=== PATIENT | female | born 1960 | race Hispanic/Latino ===

== ENCOUNTER 2018-06-03 16:20 | Inpatient (IN) | payer BC, OTHER ==
[2018-06-03] MEDS ORDERED: NA CHLORIDE 0.9% 0 ML ONE (18:02)
[2018-06-03] MEDS ORDERED: ACETAMINOPHEN 500 MG TAB ONE (18:02)
[2018-06-03 18:09] LABS: Absolute Lymphocytes (CBC) 1.4 K/uL (0.7-4.9); Absolute Monocytes 0.7 K/uL (0.1-1.3); Absolute Neutrophil 8.1 K/uL (1.8-8.0); Basophils % 0.7 % (0-1.3); Eosinophils % 2.4 % (0-4.4); Lymphocytes % 13.1 % (15.3-44.8); MCV 84.5 fL (80-100); MPV 7.1 fL (7.6-11.3); Monocytes % 6.4 % (3.3-12.3); Protime INR 1.13
[2018-06-03 18:33] LABS: ALT/SGPT 30 U/L (12-78); AST/SGOT 31 U/L (15-37); Albumin 3.3 g/dL (3.4-5.0); Alkaline Phosphatase 140 U/L (45-117); BUN Blood Urea Nitrogen 16 mg/dL (7-18); Bicarbonate 25 mmol/L (21-32); Bilirubin Direct < 0.1 mg/dL (0-0.2); Bilirubin Total 0.3 mg/dL (0.2-1.0); Glucose Level 107 mg/dL (74-106); NT PRO-BNP 20 pg/mL (<125); Potassium 3.8 mmol/L (3.5-5.1); Protein, Total 9.3 g/dL (6.4-8.2); Sodium Level 135 mmol/L (136-145); Troponin (Emerg Dept Use Only) 0.03 ng/mL (0.0-0.045)
[2018-06-03] MEDS ORDERED: AZITHROMYCIN 500 MG/250 ML BAG ONE (18:44)
[2018-06-03] MEDS ORDERED: CEFTRIAXONE/SWI 1gm 1 GM/10 ML SYR ONE ×2 (18:44→19:24)
[2018-06-03 18:56] LABS: Urine Blood NEGATIVE (NEG); Urine Glucose NEGATIVE (NEG); Urine Protein NEGATIVE (NEG); Urine pH 6.5 (5.0-7.0)
[2018-06-03] MEDS ORDERED: NA CHLORIDE 0.9% 1,000 ML ONE (19:23)
[2018-06-03] MEDS ORDERED: ALBUTEROL 2.5 MG/3 ML NEB SOL ONE (19:38)
[2018-06-03 19:47] LABS: Urine Bacteria <20 /HPF (<20); Urine RBC <5 /HPF (NONE SEEN)
[2018-06-03 19:48] LABS: Urine Culture Reflex Order NOT NEEDED
--- NOTE | 2018-06-03 20:01 | EDPHYS ---
Physician Documentation [facility] Name: Waleska Zhong Age: 57 yrs Sex: Female : 1960 Arrival Date: 06/03/2018 Time: 16:23 Bed 7 Private MD: ED Physician Teodoro Hamilton HPI: 06/02 17:30 This 57 yrs old Female presents to ER via Ambulatory with complaints of pm1 Shortness Of Breath, Cough. 17:30 The patient has shortness of breath with light activity. Onset: The symptoms/episode pm1 began/occurred 3 week(s) ago. Duration: The symptoms are continuous, and are steadily getting worse. The patient's shortness of breath is aggravated by exertion, light activity, is alleviated by nothing. Associated signs and symptoms: Pertinent positives: non-productive cough, fever, Pertinent negatives: chest pain, nausea, vomiting. Severity of symptoms: in the emergency department the symptoms are worse. The patient has been recently seen by a physician: the patient's primary care provider, with similar presenting complaints, lab tests were done, X-rays were performed, CT scan was done, was given a prescription for antibiotics. Patient presenting today with fever and shortness of breath for 3 weeks. Patient with right ear pain, sore throat and fever and was given a prescription for Levaquin by her PCP. Lab work and chest x-ray performed. Told that initial chest X-ray showed right lower base possible infiltrate. Patient without improvement in fever or shortness of breath and was prescribed doxycycline after completing Levaquin. No improvement with doxycycline either. . Historical: - Allergies: 06/03 17:01 Sulfa (Sulfonamide Antibiotics); aj1 17:01 Pyridium; aj1 - PMHx: 17:01 Hypertension; Hyperlipidemia; Hypothyroidism; aj1 - Immunization history:: Adult Immunizations up to date. - Social history:: Smoking status: Patient/guardian denies using tobacco. - Ebola Screening: : No symptoms or risks identified at this time. ROS: 17:30 Eyes: Negative for injury, pain, redness, and discharge. pm1 17:30 Neck: Negative for injury, pain, and swelling. 17:30 Constitutional: Positive for fever, Negative for poor PO intake. 17:30 Abdomen/GI: Negative for abdominal pain, nausea, vomiting, diarrhea, and constipation, pm1 Back: Negative for injury and pain, : Negative for injury, bleeding, discharge, and swelling, MS/Extremity: Negative for injury and deformity, Skin: Negative for injury, rash, and discoloration, Neuro: Negative for headache, weakness, numbness, tingling, and seizure. 17:30 Cardiovascular: Negative for chest pain, palpitations, and edema. 17:30 Respiratory: Positive for dyspnea on exertion, shortness of breath, Negative for sputum production, wheezing. Exam: 17:30 Head/Face: Normocephalic, atraumatic. Eyes: Pupils equal round and reactive to light, pm1 extra-ocular motions intact. Lids and lashes normal. Conjunctiva and sclera are non-icteric and not injected. Cornea within normal limits. Periorbital areas with no swelling, redness, or edema. ENT: Nares patent. No nasal discharge, no septal abnormalities noted. Tympanic membranes are normal and external auditory canals are clear. Oropharynx with no redness, swelling, or masses, exudates, or evidence of obstruction, uvula midline. Mucous membranes moist. Neck: Trachea midline, no thyromegaly or masses palpated, and no cervical lymphadenopathy. Supple, full range of motion without nuchal rigidity, or vertebral point tenderness. No Meningismus. Chest/axilla: Normal chest wall appearance and motion. Nontender with no deformity. No lesions are appreciated. Cardiovascular: Regular rate and rhythm with a normal S1 and S2. No gallops, murmurs, or rubs. Normal PMI, no JVD. No pulse deficits. 17:30 Abdomen/GI: Soft, non-tender, with normal bowel sounds. No distension or tympany. No guarding or rebound. No evidence of tenderness throughout. Back: No spinal tenderness. No costovertebral tenderness. Full range of motion. Skin: Warm, dry with normal turgor. Normal color with no rashes, no lesions, and no evidence of cellulitis. MS/ Extremity: Pulses equal, no cyanosis. Neurovascular intact. Full, normal range of motion. 17:30 Constitutional: The patient appears in no acute distress, alert, awake, comfortable, non-diaphoretic, non-toxic, well developed, well hydrated, well groomed, well nourished, febrile. 17:30 Respiratory: the patient does not display signs of respiratory distress, Respirations: normal, Breath sounds: decreased breath sounds, are located in both bases. 17:30 Neuro: Orientation: is normal, Motor: is normal, moves all fours. Vital Signs: 17:01 BP 140 / 86; Pulse 114; Resp 24; Temp 101.3; Pulse Ox 93% on R/A; Weight 66.22 kg (R); aj1 Height 5 ft. 2 in. (157.48 cm) (R); 20:24 BP 107 / 76; Pulse 89; Resp 20; Pulse Ox 97% on 2 lpm NC; Pain 0/10; tl1 20:37 Temp 98.7(O); mw2 20:37 BP 115 / 78; Pulse 96; Resp 17; Pulse Ox 95% on R/A; Pain 0/10; mw2 17:01 Body Mass Index 26.70 (66.22 kg, 157.48 cm) aj1 MDM: 17:07 Patient medically screened. pm1 19:59 Data reviewed: vital signs. Data interpreted: Pulse oximetry: on 2L(s) per nasal pm1 canula, is 97 %. Interpretation: normal. Counseling: I had a detailed discussion with the patient and/or guardian regarding: the historical points, exam findings, and any diagnostic results supporting the discharge/admit diagnosis, lab results, radiology results, the need for further work-up and treatment in the hospital. 20:10 Physician consultation: Mo Acosta MD was contacted at 20:10, regarding admission, pm1 patient's condition, would like further tests performed, procalcitonin, in the emergency department to see patient at 20:10. 06/03 17:26 Order name: Basic Metabolic Panel; Complete Time: 19:10 pm1 06/03 17:26 Order name: CBC with Diff; Complete Time: 18:24 pm1 06/03 17:26 Order name: LFT's; Complete Time: 19:10 pm1 06/03 17:26 Order name: Magnesium; Complete Time: 19:10 pm1 06/03 17:26 Order name: NT PRO-BNP; Complete Time: 19:10 pm1 06/03 17:26 Order name: PT-INR; Complete Time: 18:24 pm1 06/03 17:26 Order name: Troponin (emerg Dept Use Only); Complete Time: 19:10 pm1 06/03 17:26 Order name: Blood Culture Adult (2) pm1 06/03 17:26 Order name: Flu; Complete Time: 19:10 pm1 06/03 17:26 Order name: Weld Screen Profile; Complete Time: 19:10 pm1 06/03 17:26 Order name: Urine Microscopic Only; Complete Time: 19:56 pm1 06/03 17:43 Order name: TSH; Complete Time: 19:43 pm1 06/03 18:33 Order name: Urine Dipstick--Ancillary (enter results); Complete Time: 19:10 bd 06/03 20:09 Order name: Procalcitonin pm1 06/03 17:26 Order name: XRAY Chest (1 view) pm1 06/03 17:26 Order name: EKG; Complete Time: 17:37 pm1 06/03 17:26 Order name: Cardiac monitoring; Complete Time: 18:26 pm1 06/03 17:26 Order name: EKG - Nurse/Tech; Complete Time: 18:26 pm1 06/03 17:26 Order name: IV Saline Lock; Complete Time: 18:26 pm1 06/03 17:26 Order name: Labs collected and sent; Complete Time: 18:26 pm1 06/03 17:26 Order name: O2 Per Protocol; Complete Time: 18:26 pm1 06/03 17:26 Order name: O2 Sat Monitoring; Complete Time: 18:26 pm1 06/03 19:12 Order name: CT Chest For PE Angio pm1 06/03 21:21 Order name: Procalcitonin; Complete Time: 21:22 EDMS 06/03 17:26 Order name: Urine Dipstick-Ancillary (obtain specimen); Complete Time: 20:58 pm1 Administered Medications: 18:00 Drug: Tylenol 1000 mg Route: PO; sg 20:59 Follow up: Response: Temperature is decreased lp1 18:10 Drug: NS 0.9% 1000 ml Route: IV; Rate: 1000 ml; Site: left antecubital; sg 20:30 Follow up: IV Status: Completed infusion; IV Intake: 1000ml lp1 18:45 Drug: Zithromax 500 mg Route: IVPB; Infused Over: 1 hrs; Site: left antecubital; sg 20:59 Follow up: IV Status: Completed infusion lp1 19:17 Drug: Rocephin 1 grams Route: IV; Rate: calculated rate; Site: left antecubital; sg 20:00 Follow up: IV Status: Completed infusion; IV Intake: 10ml lp1 19:32 Drug: Albuterol 2.5 mg Route: Inhalation; tl1 20:06 Drug: Rocephin 1 grams Route: IV; Rate: calculated rate; Infused Over: 5 mins; Site: tl1 left antecubital; 20:30 Follow up: IV Status: Completed infusion; IV Intake: 10ml lp1 Disposition: 06/03/18 20:01 Hospitalization ordered by Mo Acosta for Inpatient Admission. Preliminary diagnosis is Pneumonia, unspecified organism - bilateral . - Bed requested for Telemetry/MedSurg (Inpatient). - Status is Inpatient Admission. lp1 - Condition is Stable. - Problem is new. - Symptoms have improved. UTI on Admission? No Addendum: 06/07/2018 19:03 Co-signature as Attending Physician, Teodoro Hamilton MD. r n Signatures: Dispatcher [employer] EDNC Kalyani Pringle RN RN [facility] Roseanne Segura RN LELE Bruce Castillo RN RN Teodoro Hamilton MD MD rn Pena, Laura RN RN 1 Sadia Robison RN RN 1 Bob Bearden, STUDY ABROAD ADVISOR STUDY ABROAD ADVISOR pm1 Corrections: (The following items were deleted from the chart) 06/03 18:53 06/02 17:30 The patient has shortness of breath with light activity, pm1 pm1 06/03 20:06 20:01 Hospitalization Ordered by Mo Acosta MD for Inpatient Admission. Preliminary diagnosis is Pneumonia, unspecified organism - bilateral . Bed requested for Telemetry/MedSurg (Inpatient). Status is Inpatient Admission. Condition is Stable. Problem is new. Symptoms have improved. UTI on Admission? No. pm1 21:39 20:06 06/03/2018 20:01 Hospitalization Ordered by Mo Acosta MD for Inpatient lp1 Admission. Preliminary diagnosis is Pneumonia, unspecified organism - bilateral . Bed requested for Telemetry/MedSurg (Inpatient). Status is Inpatient Admission. Condition is Stable. Problem is new. Symptoms have improved. UTI on Admission? No. mw
--- NOTE | 2018-06-03 20:01 | ER ---
Nurse's Notes [facility] Name: Waleska Zhong Age: 57 yrs Sex: Female : 1960 Arrival Date: 06/03/2018 Time: 16:23 Bed 7 Private MD: Diagnosis: Pneumonia, unspecified organism-bilateral Presentation: 06/03 16:58 Presenting complaint: states: She's been short of breath, running fever for 3 aj1 weeks. She's taken 2 sets of antibiotics and it isn't helping. She's had blood work done twice but it all came back clear. They saw a sintering press operator and she ordered a CT scan but they haven't had it done yet. Transition of care: patient was not received from another setting of care. Onset of symptoms was May 2018. Risk Assessment: Do you want to hurt yourself or someone else? Patient reports no desire to harm self or others. Initial Sepsis Screen: Does the patient meet any 2 criteria? RR > 20 per min. HR > 90 bpm. No. Patient's initial sepsis screen is negative. Does the patient have a suspected source of infection? Yes: Other: SOB. Care prior to arrival: None. 16:58 Method Of Arrival: Ambulatory aj1 16:58 Acuity: SERGEY 3 aj1 Triage Assessment: 17:01 General: Appears in no apparent distress. uncomfortable, Behavior is calm, cooperative, aj1 appropriate for age. Pain:. Neuro: Level of Consciousness is awake, alert, obeys commands. Cardiovascular: Patient's skin is warm and dry. Respiratory: Reports shortness of breath Onset: The symptoms/episode began/occurred 3 weeks ago, the patient has mild shortness of breath. Historical: - Allergies: 17:01 Sulfa (Sulfonamide Antibiotics); aj1 17:01 Pyridium; aj1 - PMHx: 17:01 Hypertension; Hyperlipidemia; Hypothyroidism; aj1 - Immunization history:: Adult Immunizations up to date. - Social history:: Smoking status: Patient/guardian denies using tobacco. - Ebola Screening: : No symptoms or risks identified at this time. Screenin:45 Abuse screen: Denies threats or abuse. Denies injuries from another. Nutritional sg screening: No deficits noted. Tuberculosis screening: No symptoms or risk factors identified. Never had TB. Fall Risk None identified. Assessment: 17:30 General: Appears in no apparent distress. uncomfortable, ill, well groomed, well sg developed, well nourished, Behavior is calm, cooperative, appropriate for age. Pain: Denies pain. Neuro: Level of Consciousness is awake, alert, obeys commands, Oriented to person, place, time, situation, Dental Tech are equal bilaterally Moves all extremities. Full function Gait is steady, Speech is normal, Facial symmetry appears normal, Pupils are PERRLA. Cardiovascular: Heart tones S1 S2 present Capillary refill is brisk in bilateral fingers Patient's skin is warm and dry. Chest pain is denied. Respiratory: Airway is patent Respiratory effort is even, unlabored, Respiratory pattern is regular, symmetrical, Breath sounds are clear. GI: Abdomen is round Bowel sounds present X 4 quads. : No signs and/or symptoms were reported regarding the genitourinary system. EENT: No signs and/or symptoms were reported regarding the EENT system. Derm: Skin is pink, warm \T\ dry. Musculoskeletal: No signs and/or symptoms reported regarding the musculoskeletal system. Vital Signs: 17:01 BP 140 / 86; Pulse 114; Resp 24; Temp 101.3; Pulse Ox 93% on R/A; Weight 66.22 kg (R); aj1 Height 5 ft. 2 in. (157.48 cm) (R); 20:24 BP 107 / 76; Pulse 89; Resp 20; Pulse Ox 97% on 2 lpm NC; Pain 0/10; tl1 20:37 Temp 98.7(O); mw2 20:37 BP 115 / 78; Pulse 96; Resp 17; Pulse Ox 95% on R/A; Pain 0/10; mw2 17:01 Body Mass Index 26.70 (66.22 kg, 157.48 cm) aj1 ED Course: 16:23 Patient arrived in ED. mr 17:01 Triage completed. aj1 17:01 Arm band placed on Patient placed in an exam room. aj1 17:07 Bob Bearden NP is PHCP. pm1 17:07 Teodoro Hamilton MD is Attending Physician. pm1 17:45 Initial lab(s) drawn, by me, sent to lab. First set of blood cultures drawn by me, Flu sg and/or RSV swab sent to lab. Inserted saline lock: 22 gauge in left antecubital area, using aseptic technique. Blood collected. 17:56 EKG done, by dental tech. reviewed by Bob Bearden NP. 3 18:00 Second set of blood cultures drawn by me. sg 18:25 Bruce Castillo, RN is Primary Nurse. sg 18:46 XRAY Chest (1 view) In Process Unspecified. EDMS 19:45 CT completed. Patient tolerated procedure well. Patient moved to CT. Patient moved back me from CT. 19:47 CT Chest For PE Angio In Process Unspecified. EDMS 20:00 Mo Acosta MD is Hospitalizing Provider. pm1 20:53 Patient has correct armband on for positive identification. Bed in low position. Call lp1 light in reach. Pulse ox on. NIBP on. 20:53 No provider procedures requiring assistance completed. Patient admitted, IV remains in lp1 place. Administered Medications: 18:00 Drug: Tylenol 1000 mg Route: PO; sg 20:59 Follow up: Response: Temperature is decreased lp1 18:10 Drug: NS 0.9% 1000 ml Route: IV; Rate: 1000 ml; Site: left antecubital; sg 20:30 Follow up: IV Status: Completed infusion; IV Intake: 1000ml lp1 18:45 Drug: Zithromax 500 mg Route: IVPB; Infused Over: 1 hrs; Site: left antecubital; sg 20:59 Follow up: IV Status: Completed infusion lp1 19:17 Drug: Rocephin 1 grams Route: IV; Rate: calculated rate; Site: left antecubital; sg 20:00 Follow up: IV Status: Completed infusion; IV Intake: 10ml lp1 19:32 Drug: Albuterol 2.5 mg Route: Inhalation; tl1 20:06 Drug: Rocephin 1 grams Route: IV; Rate: calculated rate; Infused Over: 5 mins; Site: tl1 left antecubital; 20:30 Follow up: IV Status: Completed infusion; IV Intake: 10ml lp1 Intake: 20:00 IV: 10ml; Total: 10ml. lp1 20:30 IV: 1000ml; Total: 1010ml. lp1 20:30 IV: 10ml; Total: 1020ml. lp1 Outcome: 20:01 Decision to Hospitalize by Provider. pm1 20:54 Condition: stable lp1 20:54 Instructed on the need for admit. 21:09 Admitted to Tele room 424, with chart, Report called to Monae Piedra RN lp1 21:39 Patient left the ED. lp1 Signatures: Dispatcher [employer] EDMS Kalyani Pringle, RN RN aj1 Bruce Castillo RN RN sung Arias, Jhoana mr Chay, LELE Kaur RN lp1 Sadia Robison RN RN tl1 Bob Bearden, MEDICAL REFERRAL COORDINATOR MEDICAL REFERRAL COORDINATOR pm1 Barry Oakley MyKena 2 Sarah Worthington 3
--- NOTE | 2018-06-03 20:57 | P.HP ---
Certification for Inpatient Patient admitted to: Inpatient With expected LOS: >2 Midnights Practitioner: I am a practitioner with admitting privileges, knowledge of patient current condition, hospital course, and medical plan of care. Services: Services provided to patient in accordance with Admission requirements found in Title 42 Section 412.3 of the Code of Federal Regulations Patient History Date of Service: 06/03/18 Reason for admission: pneumonia History of Present Illness: Ms Zhong is a 57 years old woman with history of HTN, Hypothyroidism, dyslipidemia, who start about 3 weeks ago with cough and progressive SOB associated with fever. She was prescribed by her doctor 2 different courses of antibiotics, first Levaquin and then Doxycyclin, without improvement. Over the last few days her SOB got worse, she was not able to walk short distances, still spiking fever. She decided to come to ED for further evaluation. Lab work remarkable for normal WBC count, lactate and procalcitonin are pending, TSH was low. CT chest preliminary report shows bilateral pneumonia. O2 sat 93 % on RA, BP 140/86, HR 114 and temp 101.3F. Home medications list reviewed: Yes - Past Medical/Surgical History -: hypothyroidism -: HTN -: dyslipidemia Past Surgical History: Reviewed- Non-Contributory - Family History Family History: Reviewed- Non-Contributory - Social History Smoking Status: Never smoker CD- Drugs: No Place of Residence: Home Review of Systems 10-point ROS is otherwise unremarkable Physical Examination - Physical Exam General: Alert, In no apparent distress HEENT: Atraumatic, PERRLA, Mucous membr. moist/pink, EOMI, Sclerae nonicteric Neck: Supple, 2+ carotid pulse no bruit, No LAD, Without JVD or thyroid abnormality Respiratory: Normal air movement, Crackles/rales (bibasilar), Other (no wheezing noted.) Cardiovascular: Regular rate/rhythm, Normal S1 S2 Gastrointestinal: Normal bowel sounds, No tenderness Musculoskeletal: No tenderness Integumentary: No rashes Neurological: Normal speech, Normal strength at 5/5 x4 extr, Normal tone, Normal affect Lymphatics: No axilla or inguinal lymphadenopathy - Studies Laboratory Data (last 24 hrs) 06/03/18 17:50: PT 13.3 H, INR 1.13 06/03/18 17:50: WBC 10.5, Hgb 12.6, Hct 38.0, Plt Count 487 H 06/03/18 17:50: Sodium 135 L, Potassium 3.8, BUN 16, Creatinine 0.80, Glucose 107 H, Magnesium 2.0, Total Bilirubin 0.3, AST 31, ALT 30, Alkaline Phosphatase 140 H Microbiology Data (last 24 hrs): 06/03/18 18:00 Nasopharnyx Influenza Type A Antigen Screen - Final 06/03/18 18:00 Nasopharnyx Influenza Type B Antigen Screen - Final Assessment and Plan - Problems (Diagnosis) (1) Pneumonia Current Visit: Yes Status: Acute Qualifiers: Pneumonia type: due to unspecified organism Laterality: bilateral Lung location: lower lobe of lung Qualified Code(s): J18.1 - Lobar pneumonia, unspecified organism (2) HTN (hypertension) Current Visit: Yes Status: Acute Qualifiers: Hypertension type: essential hypertension Qualified Code(s): I10 - Essential (primary) hypertension (3) Hypothyroidism Current Visit: Yes Status: Acute Qualifiers: Hypothyroidism type: unspecified Qualified Code(s): E03.9 - Hypothyroidism , unspecified - Plan The patient will be admitted to the hospital due to bilateral pneumonia. Will order empiric treatment with IV Rocephin and Azithromycin, IV fluids, breathing treatment, consult Dr Hercules for evaluation and recommendations. Needs to resume Levothyroxin, eventually increase the dose. - Advance Directives Does patient have a Living Will: No Does patient have a Durable POA for Healthcare: No - Code Status/Comfort Care Code Status Assessed: Yes Code Status: Full Code
[2018-06-03 21:56] VITALS: BMI 27.1
[2018-06-03] MEDS ORDERED: ACETAMINOPHEN 500 MG TAB PO PRN (22:31)
[2018-06-03] MEDS ORDERED: ONDANSETRON 4 MG/2 ML VIAL IV PRN (22:31)
[2018-06-03] MEDS ORDERED: IPRATROPIUM BROM 0.5MG/2.5ML NEB PRN (22:31)
[2018-06-03] MEDS ORDERED: ALBUTEROL 2.5 MG/3 ML NEB SOL NEB PRN (22:31)
[2018-06-03] MEDS: NA CHLORIDE 0.9% 1,000 ML IV SCH (23:02)
[2018-06-03] MEDS ORDERED: POTASSIUM CL SA 10 MEQ TAB PO ONE (23:41)
[2018-06-04 01:54] LABS: Urine Appearance CLEAR; Urine Bilirubin NEGATIVE (NEG); Urine Blood NEGATIVE (NEG); Urine Color YELLOW; Urine Glucose NEGATIVE (NEG); Urine Protein NEGATIVE (NEG); Urine Specific Gravity >=1.030 (1.005-1.030); Urine Urobilinogen 0.2 mg/dL (0.2-1.0)
[2018-06-04 02:32] LABS: Urine Microscopic Reflex NO UMIC
[2018-06-04 04:40] LABS: Absolute Lymphocytes (CBC) 1.4 K/uL (0.7-4.9); Absolute Monocytes 0.7 K/uL (0.1-1.3); Absolute Neutrophil 4.4 K/uL (1.8-8.0); Basophils % 0.7 % (0-1.3); Eosinophils % 4.6 % (0-4.4); Hematocrit 33.8 % (36.0-45.0); Lymphocytes % 20.6 % (15.3-44.8); MCH 27.9 pg (27.0-35.0); MCV 84.1 fL (80-100); MPV 7.2 fL (7.6-11.3); Monocytes % 10.3 % (3.3-12.3); RBC Red Blood Cell Count 4.02 M/uL (3.86-4.86)
[2018-06-04 04:55] LABS: Potassium 3.9 mmol/L (3.5-5.1)
[2018-06-04] MEDS ORDERED: POTASSIUM CL SA 10 MEQ TAB PO ONE (06:00)
[2018-06-04] MEDS: NA CHLORIDE 0.9% 1,000 ML IV SCH ×2 (06:01→08:31)
[2018-06-04] MEDS ORDERED: LEVOTHYROXINE SOD 0.112 MG TAB PO SCH (06:30)
--- NOTE | 2018-06-04 07:07 | EKG ---
Test Date: 2018-06-03 Test Time: 17:52:56 Business Intelligence Etl Developer: IZABELLA MEASUREMENT RESULTS: Intervals: Rate: 102 SC: 150 QRSD: 84 QT: 352 QTc: 458 Pimento: P: 44 SC: 150 QRS: 71 T: 31 INTERPRETIVE STATEMENTS: Sinus tachycardia Otherwise normal ECG No previous ECG available for comparison Electronically Signed On 06-04-18 07:07:18 CERTIFIED TECHNICIAN by Terrence York
[2018-06-04] MEDS: ENOXAPARIN 40 MG/0.4 ML SQ SCH (08:21)
--- NOTE | 2018-06-04 08:52 | RAD REPORT ---
EXAM DESCRIPTION: CT - Chest For Pe Angio - 06/03/2018 9:42 pm CLINICAL HISTORY: Fever, shortness of breath Final written report was delayed due to technical malfunction. A verbal report was provided at the ti me of the study. No comparison imaging or history was available at the time of the verbal report. COMPARISON: Chest films same date TECHNIQUE: Dynamically enhanced 3 mm thick images of the chest were obtained during administration o f approximately 150mL Isovue 370 IV contrast. Coronal and oblique MIP reconstruction images were gene rated and reviewed. Exam utilizes a protocol to evaluate the pulmonary arterial tree. All CT scans are performed using dose optimization technique as appropriate and may include automated exposure control or mA/KV adjustment according to patient size. FINDINGS: No pulmonary emboli are identified. The aorta as imaged shows no acute or suspicious finding. Ascending aorta is 3.4 cm in diameter. No p ericardial thickening or effusion. Cardiomegaly is present. Scattered bilateral interstitial and alveolar opacities are present. The opacification has a more con solidated pattern in the medial mid and lower right lung field and in the medial left base. There is substantial motion degradation in the lower lung [place]orga. No pleural effusion or pleural thickening. N o endobronchial lesion. No mediastinal or hilar suspicious masses. No chest wall masses or abnormal axillary lymphadenopathy. Prominent left lobe of the thyroid gland without defined nodule. IMPRESSION: No pulmonary emboli identified. Extensive bilateral interstitial and alveolar opacification favored to be bilateral pneumonia rather than failure or volume overload. Correlation is needed with laboratory and clinical presentation. Enlarged left-side thyroid gland. Followup sonography can be obtained for further characterization.
[2018-06-04] MEDS ORDERED: CEFTRIAXONE 1 GM/NS 50 ML 1 GM/50 ML BAG IV SCH (09:00)
[2018-06-04] MEDS ORDERED: CEFTRIAXONE/SWI 1gm 1 GM/10 ML SYR IV SCH (09:00)
--- NOTE | 2018-06-04 10:56 | RAD REPORT ---
EXAM DESCRIPTION: RAD - Chest Single View - 06/03/2018 9:42 pm CLINICAL HISTORY: Fever, shortness of breath Final written report was delayed due to network malfunction COMPARISON: None. TECHNIQUE: AP portable chest image was obtained 1811 hours . FINDINGS: Lung volumes are low. Interstitial opacification is scattered throughout the lung mayorga. Patchy alveolar opacification present as well. Findings are more pronounced in each base. Vasculature is not outside of normal range. Heart size is normal. No measurable pleural effusion and no pneumoth orax. No acute bony abnormality seen. No acute aortic findings suspected. IMPRESSION: Bilateral interstitial and alveolar opacification suspicious for pneumonia rather than f ailure or volume overload.
--- NOTE | 2018-06-04 11:52 | P.CNS ---
Date of Consult: 06/04/18 Chief Complaint: Normal chest x-ray shortness of breath History of Present Illness: Patient is 57 years of age admitted with a 3 week history of progressive cough shortness of breath patient lives in [place]. She was seen by a primary care physician prescribed 2 different courses of antibiotics when doxycycline no relief became progressively worse shortness of breath on mild exertion also had some fever was also seen by a milk house worker pulmonary function tests were done CT scan ordered. No prior history of cardiopulmonary disorders Allergies phenazopyridine [From Pyridium] Allergy (Verified 06/03/18 20:58) Hives Sulfa (Sulfonamide Antibiotics) Allergy (Verified 06/03/18 20:58) Hives Home Medications: Amlodipine [Norvasc*] 10 mg PO DAILY 06/03/18 Budesonide/Formoterol Fumarate [Symbicort 160-4.5 Mcg Inhaler] 2 puff IH BID Levothyroxine [Synthroid*] 112 mcg PO DAILY 06/03/18 Rosuvastatin [Crestor*] 10 mg PO BEDTIME 06/03/18 - Past Medical/Surgical History Diabetic: No -: hypothyroidism -: HTN -: dyslipidemia -: carpal tunnel sx -: bladder sling - Family History Father Medical History: Hypertension, Diabetes Mother Medical History: Hypertension, Diabetes, Stroke, Cancer Sister Medical History: Diabetes Notes: A fib - Social History Alcohol use: Yes CD- Drugs: No Caffeine use: Yes Place of Residence: Home Review of Systems 10-point ROS is otherwise unremarkable General: Weakness Respiratory: Cough, Shortness of Breath Physical Examination Temp Pulse Resp BP Pulse Ox 99.1 F 85 18 114/64 92 06/04/18 08:00 06/04/18 08:00 06/04/18 08:00 06/04/18 08:00 06/04/18 08:00 General: Alert, Oriented x3 HEENT: Atraumatic Neck: Supple Respiratory: Crackles/rales (Bilateral crackles and inspiratory) Cardiovascular: No edema, Regular rate/rhythm Gastrointestinal: Normal bowel sounds, Soft and benign Laboratory Data (last 24 hrs) 06/03/18 17:50: PT 13.3 H, INR 1.13 06/03/18 17:50: WBC 10.5, Hgb 12.6, Hct 38.0, Plt Count 487 H 06/03/18 17:50: Sodium 135 L, Potassium 3.8, BUN 16, Creatinine 0.80, Glucose 107 H, Magnesium 2.0, Total Bilirubin 0.3, AST 31, ALT 30, Alkaline Phosphatase 140 H - Problems (1) Bilateral pneumonia Current Visit: Yes Status: Acute Plan: Patient is 57 years of age admitted with presumed chronic bilateral opacities no evidence of active ongoing sepsis white count is normal patient has been treated with levofloxacin and doxycycline she has extensive bilateral crackles most likely he has atypical pneumonia I have ordered a serum HIV test serum LDH she will need a bronchoscopy a bronchioalveolar lavage. Dc all antibiotics trial of steroids vital signs are satisfactory the little hypoxic Qualifiers: Pneumonia type: due to unspecified organism
[2018-06-04] MEDS: METHYLPREDNISOLONE 40 MG INJ IV SCH ×2 (14:25→17:00)
--- NOTE | 2018-06-04 14:41 | ECHO ---
HEIGHT: 5 ft 2 in WEIGHT: 148 lb 0 oz DATE OF STUDY: 06/04/[address]: Vinay Hercules MD 2-DIMENSIONAL: YES M.MODE: YES DOPPLER: YES COLOR FLOW: YES TDS: PORTABLE: DEFINITY: BUBBLE STUDY: DIAGNOSIS: RULE OUT CONGESTIVE HEART FAILURE. CARDIAC HISTORY: CATHERIZATION: NO SURGERY: NO PROSTHETIC VALVE: NO PACEMAKER: NO MEASUREMENTS (cm) DIASTOLIC (NORMALS) SYSTOLIC (NORMALS) IVSd 1.0 (0.6-1.2) LA Diam 3.0 (1.9-4.0) LVEF 73% LVIDd 4.0 (3.5-5.7) LVIDs 2.3 (2.0-3.5) %FS 41% LVPWd 1.0 (0.6-1.2) Ao Diam 2.8 (2.0-3.7) 2 DIMENSIONAL ASSESSMENT: RIGHT ATRIUM: NORMAL LEFT ATRIUM: NORMAL RIGHT VENTRICLE: NORMAL LEFT VENTRICLE: NORMAL TRICUSPID VALVE: NORMAL MITRAL VALVE: NORMAL PULMONIC VALVE: NORMAL AORTIC VALVE: NORMAL PERICARDIAL EFFUSION: NONE AORTIC ROOT: NORMAL LEFT VENTRICULAR WALL MOTION: NORMAL DOPPLER/COLOR FLOW: NORMAL COMMENTS: NORMAL TWO DIMENSIONAL ECHOCARDIOGRAM WITH DOPPLER. TECHNOLOGIST: LYNDSEY DAVIDSON
--- NOTE | 2018-06-04 16:55 | P.PN ---
Subjective Date of Service: 06/04/18 Primary Care Provider: Dr. Mckeon([place], [place]); Endocrinology-Dr. Gonzales Chief Complaint: Normal chest x-ray shortness of breath Subjective: Improving Physical Examination - Vital Signs Temperature: 99 F Blood Pressure: 139/45 Pulse: 88 Respirations: 18 Pulse Ox (%): 95 - Physical Exam General: Alert, In no apparent distress, Oriented x3, Cooperative HEENT: Atraumatic Neck: Supple Respiratory: Crackles/rales (Bilateral) Cardiovascular: Normal pulses, Regular rate/rhythm Gastrointestinal: Normal bowel sounds, Soft and benign, Non-distended, No tenderness, No masses, No rebound, No guarding Musculoskeletal: No erythema, No tenderness, No warmth Integumentary: No tenderness/swelling, No erythema, No warmth, No cyanosis Neurological: Normal speech, Normal strength at 5/5 x4 extr, Normal tone, Normal affect - Studies Laboratory Data (last 24 hrs) 06/03/18 17:50: PT 13.3 H, INR 1.13 06/03/18 17:50: WBC 10.5, Hgb 12.6, Hct 38.0, Plt Count 487 H 06/03/18 17:50: Sodium 135 L, Potassium 3.8, BUN 16, Creatinine 0.80, Glucose 107 H, Magnesium 2.0, Total Bilirubin 0.3, AST 31, ALT 30, Alkaline Phosphatase 140 H Microbiology Data (last 24 hrs): 06/03/18 18:00 Nasopharnyx Influenza Type A Antigen Screen - Final 06/03/18 18:00 Nasopharnyx Influenza Type B Antigen Screen - Final Medications List Reviewed: Yes Assessment & Plan Discharge Plan: Home Plan to discharge in: 48 Hours Physician Review Additional Text: Impression: Bilateral pneumonia with chronic bilateral opacities Hypothyroidism Hyperlipidemia Plan: Bilateral pneumonia with chronic bilateral opacities: Case discussed at length with pulmonology. Pulmonology feels that opacities are chronic. Patient already been treated with doxycycline and Levaquin as an outpatient. Patient be evaluated for HIV. Pulmonology feels no ongoing sepsis noted at this time as pro calcitonin and white count unremarkable. Pulmonology has discontinued all antibiotic therapy. Patient to be treated with IV steroids. Will reassess tomorrow. Hypothyroidism with left thyromegaly: Patient is seen by endocrinology as an outpatient. Medications recently adjusted. Will continue with her current medication. Tsh and free T4 will need to be reassessed by endocrinology as an outpatient. Will recommend to repeat thyroid ultrasound as an outpatient to further assess as well. Hyperlipidemia: Will continue current medication. Time Spent Managing Pts Care (In Minutes): 55
[2018-06-04] MEDS ORDERED: AZITHROMYCIN IV 500 MG in NA CHLORIDE 0.9% 250 ML IVPB SCH (18:00)
[2018-06-04] MEDS ORDERED: ARFORMOTEROL TARTRATE 15 MCG/2 ML VIAL.NEB NEB SCH (20:00)
[2018-06-04] MEDS ORDERED: ROSUVASTATIN 10 MG TAB PO SCH (21:00)
[2018-06-05] MEDS: METHYLPREDNISOLONE 40 MG INJ IV SCH ×2 (00:40→10:16)
[2018-06-05 04:10] LABS: Absolute Lymphocytes (CBC) 0.7 K/uL (0.7-4.9); Absolute Monocytes 0.1 K/uL (0.1-1.3); Absolute Neutrophil 5.2 K/uL (1.8-8.0); Basophils % 2.1 % (0-1.3); Eosinophils % 0.1 % (0-4.4); Hematocrit 35.4 % (36.0-45.0); Lymphocytes % 10.7 % (15.3-44.8); MCH 27.7 pg (27.0-35.0); MPV 7.1 fL (7.6-11.3); Monocytes % 1.3 % (3.3-12.3); RBC Red Blood Cell Count 4.22 M/uL (3.86-4.86)
[2018-06-05 04:32] LABS: Magnesium 2.5 mg/dL (1.8-2.4); Potassium 4.7 mmol/L (3.5-5.1)
[2018-06-05 05:16] LABS: Blood Morphology Comment NOT SEEN (NOT SEEN); Platelet Estimate ADEQ
[2018-06-05] MEDS ORDERED: LEVOTHYROXINE SOD 0.088 MG TAB PO SCH ×2 (06:30)
[2018-06-05] MEDS ORDERED: LEVOTHYROXINE SOD 0.112 MG TAB PO SCH (06:30)
[2018-06-05 09:58] VITALS: O2SAT 94
[2018-06-05] MEDS: ENOXAPARIN 40 MG/0.4 ML SQ SCH (10:16)
[2018-06-05] MEDS ORDERED: Phenylephrine HCl 10 MG/ML 1 ML VIAL ONE (11:27)
[2018-06-05] MEDS ORDERED: LIDOCAINE 1% MPF 30 ML VIAL ONE (11:28)
[2018-06-05] MEDS ORDERED: GLYCOPYRROLATE 0.2 MG/ML SYR ONE (11:28)
[2018-06-05] MEDS ORDERED: Ringers Lactate 1,000 ML IV ONE (11:30)
[2018-06-05 11:38] VITALS: BP 130/79; TEMP 98.4
[2018-06-05] MEDS: LIDOCAINE 4% TOP SOLUTION ONE ×2 (11:41→11:42)
--- NOTE | 2018-06-05 14:03 | P.PN ---
Subjective Date of Service: 06/05/18 Primary Care Provider: Dr. Mckeon([place], [place]); Endocrinology-Dr. Gonzales Chief Complaint: Bilateral pneumonia weakness Subjective: Improving (Patient is doing much better she still has some fatigue otherwise her vital signs are all stable denies any chest pain cough sputum hemoptysis fever or weight loss) Review of Systems 10-point ROS is otherwise unremarkable Physical Examination - Vital Signs Temperature: 98.4 F Blood Pressure: 130/79 Pulse: 96 Respirations: 16 Pulse Ox (%): 94 - Physical Exam General: Alert, Oriented x3 HEENT: Atraumatic Neck: Supple Respiratory: Crackles/rales (Bilateral crackles no change) Cardiovascular: No edema, Regular rate/rhythm - Studies Medications List Reviewed: Yes Assessment & Plan - Problems (Diagnosis) (1) Bilateral pneumonia Onset Date: 06/04/18 Current Visit: Yes Status: Acute Plan: Patient admitted with bilateral atypical pneumonia serum LDH level is normal I doubt if this is Pneumocystis HIV screen is pending was likely a postinflammatory fibrotic response I suggested low-dose prednisone 10 mg twice a day the bronchoscope was nonfunctional to day the repaired and be available for use by a Saturday I have discussed with the patient for a bronchoscopy on Saturday and to be discharged home on 7 days of prednisone low-dose she is clinically improving a sats are normal there is no fever slight 1 on admission patient has had Levaquin doxycycline with no change I also discuss with the at length Qualifiers: Pneumonia type: due to unspecified organism Physician Review Additional Text: Impression: Bilateral pneumonia with chronic bilateral opacities Hypothyroidism Hyperlipidemia Plan: Bilateral pneumonia with chronic bilateral opacities: Case discussed at length with pulmonology. Pulmonology feels that opacities are chronic. Patient already been treated with doxycycline and Levaquin as an outpatient. Patient be evaluated for HIV. Pulmonology feels no ongoing sepsis noted at this time as pro calcitonin and white count unremarkable. Pulmonology has discontinued all antibiotic therapy. Patient to be treated with IV steroids. Will reassess tomorrow. Hypothyroidism with left thyromegaly: Patient is seen by endocrinology as an outpatient. Medications recently adjusted. Will continue with her current medication. Tsh and free T4 will need to be reassessed by endocrinology as an outpatient. Will recommend to repeat thyroid ultrasound as an outpatient to further assess as well. Hyperlipidemia: Will continue current medication.
--- NOTE | 2018-06-05 16:09 | P.DS ---
Admission Date: 06/03/18 Discharge Date: 06/05/18 Primary Care Provider: Dr. Mckeon([place], [place]); Endocrinology-Dr. Gonzales Disposition: ROUTINE DISCHARGE Discharge Condition: FAIR Reason for Admission: Bilateral pneumonia weakness Consultations: Pulmonary-Dr. Hercules Procedures: CT scan: COMPARISON: Chest films same date TECHNIQUE: Dynamically enhanced 3 mm thick images of the chest were obtained during administration of approximately 150mL Isovue 370 IV contrast. Coronal and oblique MIP reconstruction images were generated and reviewed. Exam utilizes a protocol to evaluate the pulmonary arterial tree. All CT scans are performed using dose optimization technique as appropriate and may include automated exposure control or mA/KV adjustment according to patient size. FINDINGS: No pulmonary emboli are identified. The aorta as imaged shows no acute or suspicious finding. Ascending aorta is 3.4 cm in diameter. No pericardial thickening or effusion. Cardiomegaly is present. Scattered bilateral interstitial and alveolar opacities are present. The opacification has a more consolidated pattern in the medial mid and lower right lung field and in the medial left base. There is substantial motion degradation in the lower lung [place]. No pleural effusion or pleural thickening. No endobronchial lesion. No mediastinal or hilar suspicious masses. No chest wall masses or abnormal axillary lymphadenopathy. Prominent left lobe of the thyroid gland without defined nodule. IMPRESSION: No pulmonary emboli identified. Extensive bilateral interstitial and alveolar opacification favored to be bilateral pneumonia rather than failure or volume overload. Correlation is needed with laboratory and clinical presentation. Enlarged left-side thyroid gland. Followup sonography can be obtained for further characterization. Ejection fraction 70% LEFT VENTRICULAR WALL MOTION: NORMAL DOPPLER/COLOR FLOW: NORMAL COMMENTS: NORMAL TWO DIMENSIONAL ECHOCARDIOGRAM WITH DOPPLER. Medical Problem List: Extensive bilateral interstitial and alveolar opacification likely atypical bacterial pneumonia versus post inflammatory changes Hypothyroidism Hyperlipidemia Hospital Course: Patient presented with increasing shortness of breath over the last 3 weeks. Patient had received 2 courses of antibiotic therapy including doxycycline and Levaquin for this. No improvement was noted. She also had seen pulmonology as an outpatient. Symptoms persisted. She was seen in the emergency room. CT scan revealed Extensive bilateral interstitial and alveolar opacification likely atypical pneumonia versus postinflammatory changes. Patient was admitted for further evaluation. Patient seen by pulmonology. Pulmonology recommends no antibiotics at this time. Patient was given a trial of IV steroids. Symptoms seemed to have improved. Patient being evaluated for HIV as recommended by pulmonology. Pulmonology also recommends bronchoscopy. This was not able to be done in the hospital. At discharge patient will continue with prednisone 10 mg 1 pill twice daily for 7 days. Pulmonology recommends to have bronchoscopy within the next 5 days as an outpatient to further assess. Patient is seen by another pulmonology specialist as an outpatient. Patient is considering to follow up with her barker peeler within the next 24 hr to continue her care. Prior to discharge she was able to get in contact with her barker peeler. She has an appointment tomorrow to further assess her condition. It is recommended that she had a bronchoscopy to further evaluate. Patient has hypertension. This remained stable. She will continue with Norvasc 10 mg daily. Recommendation is to maintain blood pressures less 150/ 80. Further adjustment can be done by her PCP. Patient has hypothyroidism with left thyroid enlargement. Patient seen by Endocrinology as an outpatient. Recommendation is to continue with Synthroid 112 mcg daily. Recommendation is to follow up with Endocrinology to further evaluate. Patient may require repeat tsh and free T4 in 4-6 weeks to monitor her progress. Further adjustment in medication may be required. Medication recently adjusted by her fingernail technician was noted. Repeat thyroid ultrasound may be required as well. Vital Signs/Physical Exam: Temp Pulse Resp BP Pulse Ox 98.4 F 96 H 16 130/79 94 06/05/18 14:03 06/05/18 14:03 06/05/18 14:03 06/05/18 14:03 06/05/18 14:03 General: Alert, In no apparent distress, Oriented x3, Cooperative HEENT: Atraumatic, Mucous membr. moist/pink Neck: Supple, No Thyromegaly Respiratory: Clear to auscultation bilaterally, Normal air movement Cardiovascular: Normal pulses, Regular rate/rhythm Gastrointestinal: Normal bowel sounds, Soft and benign, Non-distended, No tenderness, No masses, No rebound, No guarding Musculoskeletal: No erythema, No tenderness, No warmth Integumentary: No tenderness/swelling, No erythema, No warmth, No cyanosis Neurological: Normal speech, Normal strength at 5/5 x4 extr, Normal tone, Normal affect Laboratory Data at Discharge: WBC 6.1 K/uL (4.3-10.9) 06/05/18 03:46 Hgb 11.7 g/dL (12.0-15.0) L 06/05/18 03:46 Hct 35.4 % (36.0-45.0) L 06/05/18 03:46 Plt Count 445 K/uL (152-406) H 06/05/18 03:46 PT 13.3 SECONDS (9.5-12.5) H 06/03/18 17:50 INR 1.13 06/03/18 17:50 Sodium 138 mmol/L (136-145) 06/05/18 03:46 Potassium 4.7 mmol/L (3.5-5.1) 06/05/18 03:46 BUN 15 mg/dL (7-18) 06/05/18 03:46 Creatinine 0.70 mg/dL (0.55-1.3) 06/05/18 03:46 Glucose 171 mg/dL (74-106) H 06/05/18 03:46 Magnesium 2.5 mg/dL (1.8-2.4) H D 06/05/18 03:46 Total Bilirubin 0.3 mg/dL (0.2-1.0) 06/03/18 17:50 AST 31 U/L (15-37) 06/03/18 17:50 ALT 30 U/L (12-78) 06/03/18 17:50 Alkaline Phosphatase 140 U/L (45-117) H 06/03/18 17:50 Home Medications: Amlodipine [Norvasc*] 10 mg PO DAILY 06/03/18 Levothyroxine [Synthroid*] 112 mcg PO DAILY 06/03/18 Rosuvastatin [Crestor*] 10 mg PO BEDTIME 06/03/18 Patient Discharge Instructions: 1. Patient will need to follow up her PCP within 1 week to follow up this hospitalization. 2. Patient presented with increasing shortness of breath. CT scan revealed Extensive bilateral interstitial and alveolar opacification likely atypical pneumonia versus postinflammatory changes. Patient seen by pulmonology. Pulmonology recommends no antibiotics at this time. Patient being evaluated for HIV. Pulmonology recommends bronchoscopy. At discharge patient will continue with prednisone 10 mg 1 pill twice daily for 7 days. Pulmonology recommends to have bronchoscopy within the next 5 days as an outpatient to further assess. Patient is seen by pulmonology as an outpatient. Patient is considering to follow up with her barker peeler within the next 24 hr to continue her care. 3. Patient has hypertension. This remained stable. She will continue with Norvasc 10 mg daily. Recommendation is to maintain blood pressures less 150/80. Further adjustment can be done by her PCP. 4. Patient has hypothyroidism with left thyroid enlargement. Patient seen by Endocrinology as an outpatient. Recommendation is to continue with Synthroid 112 mcg daily. Recommendation is to follow up with Endocrinology to further evaluate. Patient may require repeat ultrasound in the future to further monitor. Diet: Regular Activity: Weight bearing as tolerated Followup: Vinay Hercules MD [ACTIVE - CAN ADMIT] - Time spent managing pt's care (in minutes): 55
[2018-06-07 15:00] LABS: HIV 1/2 Antibody Diff Not indicated.; HIV AG/AB 4TH GEN Non-reactive (Non-reactive)
== END 2018-06-05 16:20 | disposition home or self-care (01) | DRG 195 ==
LOC: ER 16:20 → ERHOLD 20:02 → 4TH 21:11
PROVIDERS: ADMIT Internal Medicine; ATTEND Family Medicine
DX: J18.1 Lobar pneumonia, unspecified organism (principal); E03.9 Hypothyroidism, unspecified; E78.5 Hyperlipidemia, unspecified; I10 Essential (primary) hypertension
CPT/HCPCS: 36415; 71045; 71275; 80048; 80076; 81003; 81015; 83605; 83615; 83735; 83880; 84145; 84436; 84439; 84443; 84480; 84484; 85025; 85610; 86308; 87040; 87086; 87088; 87389; 87804; 93005; 93306; 94760; 96361; 96365; 99285; J0456; J0696; J1650; J2370; J2920; J7030; Q9967